=== PATIENT | female | born 1935 | race Caucasian/White ===

== ENCOUNTER 2021-05-03 11:06 | Inpatient (IN) | payer OTHER ==
[~2021-05-03] VITALS: Ht 172.7 cm; Wt 62.7 kg
[2021-05-03 11:10] VITALS: BP 200/108
[2021-05-03 11:47] LABS: NUCLEATED RBCS 0 /100WBC
[2021-05-03 11:49] LABS: ABSOLUTE BASOPHILS 0.1 thou/uL (0.0-0.2); ABSOLUTE EOSINOPHILS 0.3 thou/uL (0.0-0.7); ABSOLUTE LYMPHOCYTES 1.9 thou/uL (0.8-5.3); ABSOLUTE MONOCYTES 0.7 thou/uL (0.0-1.2); ABSOLUTE NEUTROPHILS 7.2 thou/uL (1.6-8.1); BASOPHILS 1.1 %; EOSINOPHILS 2.5 %; MCH 29.8 pg (26.0-34.0); MCHC 34.2 g/dL (28.0-37.0); MCV 87.2 fL (80.0-100.0); MONOCYTES 6.9 %; MPV 7.5 fl. (7.2-11.1); PLATELET COUNT* 326 thou/uL (150-400); POLYS 70.5 %; RDW-CV 12.8 % (10.5-14.5); WBC 10.1 thou/uL (4.0-11.0)
[2021-05-03 11:51] LABS: CALCIUM 8.9 mg/dL (8.5-10.1); CREATININE 0.8 mg/dL (0.6-1.3); POTASSIUM 4.4 mmol/L (3.5-5.1)
[2021-05-03 11:55] LABS: ALBUMIN 3.9 g/dL (3.4-5.0); TOTAL BILIRUBIN 0.7 mg/dL (<0.1-1.0); TOTAL PROTEIN 7.3 g/dL (6.4-8.2)
[2021-05-03 12:01] LABS: PROTIME 10.3 Seconds (9.20-11.50)
--- NOTE | 2021-05-03 12:13 | EKG ---
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: : 1935 Requested By: Steven Taylor Order Number: [id number] MD: Chris Lam Measurements Intervals [place] Rate: 93 P: 80 MA: 197 QRS: -78 QRSD: 137 T: 85 QT: 369 QTc: 459 Interpretive Statements Atrial-sensed ventricular-paced rhythm No further analysis attempted due to paced rhythm No previous ECG available for comparison Electronically Signed On 05-03-2021 12:13:37 CDT by Chris Lam [email or web address] <ELECTRONICALLY SIGNED> By: Chris Lam MD, [facility] 05/03/21 1213 1120 19 Chris Lam MD, [facility] /EPI
[2021-05-03 13:47] VITALS: BP 163/82
== END 2021-05-03 16:35 | DRG 64 ==
LOC: M.ERS 11:06 → M.TBA-ER 12:55 → M.ORTHSURG 14:31
PROVIDERS: Emergency Medicine; ADMIT Internal Medicine; ATTEND Internal Medicine
DX: I62.9 Nontraumatic intracranial hemorrhage, unspecified (principal); I63.9 Cerebral infarction, unspecified; I21.4 Non-ST elevation (NSTEMI) myocardial infarction; I16.1 Hypertensive emergency; I46.9 Cardiac arrest, cause unspecified; J44.9 Chronic obstructive pulmonary disease, unspecified; Z20.822 Contact with and (suspected) exposure to COVID-19; Z95.0 Presence of cardiac pacemaker; Z51.5 Encounter for palliative care